=== PATIENT | female | born 1970 | race Caucasian/White ===

== ENCOUNTER → 2016-12-18 | Outpatient (CLI) | payer BC ==
--- NOTE | 2016-12-18 11:49 | MM ---
Reason for exam: additional evaluation requested from abnormal screening. Last mammogram was performed less than 1 month ago. History: Patient is postmenopausal. Physical Findings: Nurse did not find any significant physical abnormalities on exam. MG Work Up Mamm w CAD LT Spot compression CC, spot compression MLO, and LM view(s) were taken of the left breast. Prior study comparison: December 04, 2016, bilateral MG screening mammo w CAD. July 14, 2013, bilateral MG screening mammo w CAD. The breast tissue is heterogeneously dense. This may lower the sensitivity of mammography. There is no discrete abnormality on compression. Focal asymmetry left upper outer quadrant. No significant new findings when compared with previous films. These results were verbally communicated with the patient and result sheet given to the patient on 12/18/16. ASSESSMENT: Probably benign, BI-RAD 3 RECOMMENDATION: Follow-up diagnostic mammogram of the left breast in 6 months.
== END | disposition home or self-care (01) ==
LOC: RADMAMWWP 11:02
PROVIDERS: ATTEND Internal Medicine
DX: R92.8 Other abnormal and inconclusive findings on diagnostic imaging of breast (principal)

== ENCOUNTER → 2017-01-05 | Outpatient (CLI) | payer BC ==
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
== END ==
LOC: WWCWWP 15:38
PROVIDERS: ATTEND Obstetrics & Gynecology
DX: Z01.419 Encounter for gynecological examination (general) (routine) without abnormal findings (principal)

== ENCOUNTER 2017-09-05 21:04 | Emergency (ER) | payer BC ==
[2017-09-05 21:15] VITALS: TEMP 98.4
[2017-09-05] MEDS ORDERED: LIDOCAINE 1% INJ 10MG/ML (20 ML MDV) SQ ONE (21:31)
[2017-09-05] MEDS ORDERED: DIPH,PERTUS(ACELL)TETVAC-LF 0.5 ML VIAL IM ONE (21:32)
[2017-09-05] MEDS ORDERED: IBUPROFEN 600 MG TAB PO STA (21:51)
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
--- NOTE | 2017-09-05 23:19 | XR ---
EXAMINATION TYPE: XR forearm LT DATE OF EXAM: 09/05/2017 COMPARISON: NONE HISTORY: Pain. Fall. TECHNIQUE: 3 views FINDINGS: There is deformity of the radial styloid process related to slightly impacted intra-articul ar fracture. The ulna appears intact. Elbow joint is intact. IMPRESSION: Slightly impacted radial styloid process fracture.
--- NOTE | 2017-09-05 23:20 | XR ---
EXAMINATION TYPE: XR knee complete LT DATE OF EXAM: 09/05/2017 COMPARISON: NONE HISTORY: Knee pain TECHNIQUE: 3 views FINDINGS: I see no fracture nor dislocation. Joint spaces are normal. There is no sign of knee joint effusion. IMPRESSION: Negative left knee exam.
--- NOTE | 2017-09-05 23:22 | XR ---
EXAMINATION TYPE: XR wrist complete LT DATE OF EXAM: 09/05/2017 COMPARISON: NONE HISTORY: Fall and wrist pain TECHNIQUE: 4 views FINDINGS: There is 17 x 10 mm intra-articular chip fracture of the anterior aspect of the radial styl oid process. There is impaction. There is no dislocation. The distal ulna is intact. Carpal bones are intact. Fracture line also extends to the medial aspect of the distal radius. IMPRESSION: Impacted intra-articular large chip fracture of the distal radius. There is probably comm inution.
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
[2017-09-06 00:20] VITALS: BP 116/78; PULSE 75; RESP 16
[2017-09-06] MEDS ORDERED: HYDROcodone/APAP 10-325MG 1 EACH TAB PO ONE (00:26)
--- NOTE | 2017-09-06 19:32 | ED ---
Disposition Clinical Impression: Distal radius fracture, left, Lip laceration, Tooth pain Disposition: HOME SELF-CARE Condition: Good Instructions: Wrist Fracture in Adults (ED), Care For Your Absorbable Stitches (ED), Facial Laceration (ED) Additional Instructions: Please use medication as discussed. Please follow-up with orthopedic surgery TOMORROW for further evaluation and treatment. Please follow-up with dentist in 1-2 days. Please follow-up with PCP for lip wound check in 3-4 days. Please return to emergency room if the symptoms increase or worsen or for any other concerns including signs and symptoms discussed. Prescriptions: HYDROcodone/APAP 7.5-325MG [[place] 7.5-325] 1 tab PO Q4H PRN 3 Days #18 tab PRN Reason: Pain Ibuprofen [Motrin] 800 mg PO Q6H PRN 7 Days #28 tab PRN Reason: Pain Penicillin V Potassium [Pen Vee K] 500 mg PO Q12H 5 Days #10 tablet Is patient prescribed a controlled substance at d/c from ED?: Yes When asked, does pt state using other controlled substances?: No If prescribed controlled substance>3 days was MAPS reviewed?: Prescribed <3 Days If opioid is for acute pain is fill amount 7 days or less?: Yes If Rx opioid, was Start Talking consent form obtained?: No Referrals: Katie Franco MD [Primary Care Provider] - 1-2 days Anuj Norton MD [Medical Doctor] - 1-2 days Time of Disposition: 01:56 Procedures - Laceration Laceration #1 Consent Obtained: verbal consent Time Out Performed: Yes Indication: laceration Site: lip (internal laceration 1.5cm does not appear to be through the lip) Description: linear Depth: simple, single layer Anesthetic Used: lidocaine 1% Anesthesia Technique: local infiltration Pre-repair: wound explored, irrigated extensively Type of Sutures: vicryl Size of Sutures: 5-0 Number of Sutures: 3 Technique: simple, interrupted Patient Tolerated Procedure: well, no complications
== END 2017-09-06 00:19 | disposition home or self-care (01) ==
LOC: EC 21:04
DX: S52.502A Unspecified fracture of the lower end of left radius, initial encounter for closed fracture (principal); S01.511A Laceration without foreign body of lip, initial encounter; K08.89 Other specified disorders of teeth and supporting structures; S00.12XA Contusion of left eyelid and periocular area, initial encounter; S80.212A Abrasion, left knee, initial encounter; Z79.891 Long term (current) use of opiate analgesic; Z23 Encounter for immunization; V17.4XXA Pedal cycle driver injured in collision with fixed or stationary object in traffic accident, initial encounter; Y93.89 Activity, other specified; Y92.488 Other paved roadways as the place of occurrence of the external cause
CPT/HCPCS: 73090; 73110; 73562; 70486; 70450; 90715; 99284; 12011; 29125; 90471; J2001

== ENCOUNTER → 2017-09-09 | Outpatient (CLI) | payer BC ==
--- NOTE | 2017-09-09 09:02 | CT ---
EXAMINATION TYPE: CT wrist LT wo con DATE OF EXAM: 09/09/2017 COMPARISON: Radiographs 09/05/2017 HISTORY: 47-year-old female wrist pain, intra-articular fracture. TECHNIQUE: Contiguous axial scanning of the left wrist without IV contrast. Coronal and sagittal lowell nstructions performed. 3-D reconstructions generated on a dedicated independent workstation. CT DLP: 101.4 mGycm Automated exposure control for dose reduction was used. FINDINGS: Redemonstrated impacted, comminuted fracture of the distal radial metaphysis and epiphysis. The major fracture fragment involves the volar half of the radial articular surface and is oriented in the cor onal plane with an articular surface gap of 3 mm, 5 mm of impaction, and the volar fracture fragment measuring 1.9 cm long by 6 mm AP by 2.6 cm wide. This also has intra-articular extension into the dis chidi radial ulnar joint where there is 1 mm articular surface step-off. Additional impacted fracture involving the scaphoid fossa resulting in volar angulation here and depr ession of approximately 2.5 mm, refer to coronal image 12. There is comminution around the lateral tavarez lf circumferential margin of the distal radial epiphysis. IMPRESSION: COMMINUTED, IMPACTED FRACTURE OF THE DISTAL RADIAL METAPHYSIS AND EPIPHYSIS OUTLINED ABOVE. THERE IS INTRA-ARTICULAR EXTENSION INTO BOTH THE DISTAL RADIAL ULNAR JOINT AND RADIOCARPAL JOINT AND SECOND GILL VOLAR ANGULATION.
== END | disposition home or self-care (01) ==
LOC: RADCTMAIN 06:49
PROVIDERS: ATTEND Orthopaedic Surgery Hand Surgery
DX: S52.592A Other fractures of lower end of left radius, initial encounter for closed fracture (principal); M21.832 Other specified acquired deformities of left forearm

== ENCOUNTER → 2017-11-05 | Outpatient (CLI) | payer BC ==
--- NOTE | 2017-11-05 14:32 | MM ---
Reason for exam: follow-up at short interval from prior study. Last mammogram was performed 11 months ago. History: Patient is postmenopausal and has history of other cancer at age 39. Physical Findings: Nurse did not find any significant physical abnormalities on exam. MG Diagnostic Mammo LT w CAD CC, MLO, and ML view(s) were taken of the left breast. Prior study comparison: December 18, 2016, left breast MG work up mamm w CAD LT. December 04, 2016, bilateral MG screening mammo w CAD. The breast tissue is heterogeneously dense. This may lower the sensitivity of mammography. No significant new findings when compared with previous films. These results were verbally communicated with the patient and result sheet given to the patient on 11/05/17. ASSESSMENT: Probably benign, BI-RAD 3 RECOMMENDATION: Follow-up diagnostic mammogram in 1 month. (right breast only)
== END ==
LOC: RADMAMWWP 13:44
PROVIDERS: ATTEND Obstetrics & Gynecology
DX: R92.8 Other abnormal and inconclusive findings on diagnostic imaging of breast (principal)
CPT/HCPCS: 77065

== ENCOUNTER → 2018-11-22 | Outpatient (CLI) | payer BC ==
--- NOTE | 2018-11-22 11:01 | CT ---
EXAMINATION TYPE: CT sinus wo con DATE OF EXAM: 11/22/2018 COMPARISON: CT facial bones 09/05/2017 HISTORY: Other chronic sinusitis CT DLP: 636.90 mGycm. Automated Exposure Control for Dose Reduction was Utilized. TECHNIQUE: CT scan of the sinuses is performed without contrast, axial images are obtained, coronal r eformatted images are also reviewed. FINDINGS: The paranasal sinuses including the frontal, ethmoid, sphenoid, and maxillary sinuses bila terally are well-aerated without abnormal opacification. The ostiomeatal complex is patent bilateral ly on the coronal images. Visualized portion of mastoid air cells show no abnormal opacification. The globes are intact bilate rally. Mildly deviated nasal septum toward the left. IMPRESSION: The sinuses are clear and the ostiomeatal complex is patent bilaterally.
== END | disposition home or self-care (01) ==
LOC: RADCTMAIN 08:02
PROVIDERS: ATTEND Otolaryngology
DX: J32.4 Chronic pansinusitis (principal)
CPT/HCPCS: 70486

== ENCOUNTER → 2020-10-22 | Outpatient (CLI) | payer BC ==
[2020-10-22 09:35] VITALS: BP 103/65; PULSE 63; RESP 16; TEMP 98.3
--- NOTE | 2020-10-22 10:31 | P.HPOB ---
History of Present Illness H&P Date: 10/22/20 Chief Complaint: The patient is here for her routine gynecologic exam. This is a 50-year-old with an LMP of 2010. The patient is status post vaginal hysterectomy for recurrent high-grade cervical dysplasia. The patient was previously using HRT implants from Dr. Rendon. She discontinued them in May 2019. She did fairly well until January 2020 when night sweats and sleeping problems became a bigger issue. She has also noticed some vaginal dryness. Her menopausal symptoms are not as bad as prior to using the HRT implants. She is otherwise without gynecologic complaints. Review of Systems The patient's weight has been stable over the last year. She denies respiratory, cardiac, or G.I. problems. Past Medical History Past Medical History: No Reported History Additional Past Medical History / Comment(s): Seasonal ALLERGIES. PAST DEVELOPMENT COACH HISTORY: History of recurrent cervical dysplasia status post vaginal hysterectomy. She possibly had HPV related to the abnormal Pap smears, but no other STDs. History of Any Multi-Drug Resistant Organisms: None Reported Past Surgical History: Hysterectomy, Orthopedic Surgery Additional Past Surgical History / Comment(s): Cold knife conization of the cervix. Vaginal hysterectomy 2010. Wrist surgery and sinus surgery. Colonoscopy 2019(next after 5yr) Past Psychological History: No Psychological Hx Reported Smoking Status: Former smoker Past Alcohol Use History: Occasional (5 per week) Additional Past Alcohol Use History / Comment(s): Quit smoking 2016. 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 - Past Family History Mother Family Medical History: Cancer, GERD/Reflux Additional Family Medical History / Comment(s): Colon cancer. Grandfather also had colon cancer. Father Family Medical History: Diabetes Mellitus, Myocardial Infarction ([place]) Medications and Allergies Home Medications Medication Instructions Recorded Confirmed Type Cetirizine HCl [Zyrtec] 10 mg PO DAILY PRN 09/26/19 10/22/20 History Lisdexamfetamine Dimesylate 30 mg PO QAM 09/26/19 10/22/20 History [Vyvanse] Biotin [Biotin Disolve] 5,000 mcg PO DAILY 10/22/20 10/22/20 History Cholecalciferol (Vitamin D3) 125 mcg PO DAILY 10/22/20 10/22/20 History [Vitamin D3 (125 MCG = 5,000 IU)] L.acidoph,Paracasei, B.lactis 1 each PO DAILY 10/22/20 10/22/20 History [Probiotic] Allergies Allergy/AdvReac Type Severity Reaction Status Date / Time No Known Allergies Allergy Verified 10/22/20 09:28 Exam Vital Signs Temp Pulse Resp BP Pulse Ox 10/22/20 09:29 98.3 F 63 16 103/65 100 Intake and Output 10/21/20 10/22/20 10/22/20 22:59 06:59 14:59 Other: Weight 61.689 kg Height 5 feet 3 inches, weight 136 pounds, BMI 24.1. This is a well-developed well-nourished white female who is alert and oriented times 3 in no acute distress. HEENT: Within normal limits. NECK: Supple without mass or thyromegaly. CHEST AND LUNGS: Clear to auscultation. HEART: Regular rate and rhythm. BREASTS: Are without mass or discharge. AXILLARY EXAM: Negative for adenopathy. BACK: Negative for CVA tenderness. ABDOMEN: Soft, nontender, without palpable masses. PELVIC EXAM: External genitalia appears normal with minimal atrophy. Vagina appears normal minimal atrophy. There is no evidence of prolapse. Bimanual examination is negative for mass or tenderness. RECTAL EXAM: Rectovaginal exam is negative for mass or tenderness and is negative for occult blood. EXTREMITIES: Nontender. IMPRESSION: 1. 50-year-old menopausal female status post vaginal hysterectomy with normal gynecologic exam. 2. Menopausal symptoms including Vasomotor symptoms and difficulty sleeping with some vaginal dryness. PLAN: 1. Pap smear was normal on 09/26/2019. We will continue doing these every 3 years until 2030, which will be 20 years after her hysterectomy for recurrent high-grade dysplasia. 2. Self breast awareness was discussed with the patient. We have also discussed symptoms associated with inflammatory breast cancer. 3. Screening mammogram was done on 09/26/2020 at [facility] and was benign. She will repeat this after 1 year. 4. Osteoporosis prevention was discussed. I have stressed the importance of adequate calcium, vitamin D and regular exercise. Recommended amounts of calcium and vitamin D were also discussed. 5. We have had a long discussion regarding menopausal symptoms and different options including ERT, nonhormonal medications, and supplements. We have also discussed possible increased risk for stroke and blood clots with ERT. After a long discussion we have decided to have a trial of an estradiol patch 0.05% changed twice weekly. The electronic prescription will be sent to [facility] in [place]. She was advised to use on the low abdomen or hips and she should rotate the location. She will call if she is not noticing significant improvement. She will also call she if she has questions or problems. 6. She was advised to return in one year for her annual well woman exam and as needed.
== END | disposition home or self-care (01) ==
LOC: WWCWWP 09:19
PROVIDERS: ATTEND Obstetrics & Gynecology
DX: Z53.9 Procedure and treatment not carried out, unspecified reason (principal)